=== PATIENT | female | born 1970 | race Caucasian/White ===

== ENCOUNTER 2016-05-20 20:48 | Emergency (ER) | payer OTHER ==
[~2016-05-20] VITALS: Ht 166.4 cm; Wt 63.5 kg
[~2016-05-20 20:48] MED LIST: BACTRIM DS 8001 TAB PO; CIPRO250 M1 PO; MACROBID100 MG PO; PROBIOTIC FORMU1 CAP PO
[2016-05-20 20:53] VITALS: BP 142/82
--- NOTE | 2016-05-20 21:19 | ED SYNCOPE COMPLAINT ---
History of Present Illness General Chief Complaint: General Adult Stated Complaint: " AT WORK FELT LIKE PASSING OUT, COLD CHILLS,+N" Source: patient Exam Limitations: no limitations Vital Signs & Intake/Output Vital Signs & Intake/Output Vital Signs Date Time Temp Pulse Resp B/P Pulse O2 O2 Flow FiO2 Ox Delivery Rate 05/20 2113 98 Room Air 05/20 2052 97.8 73 20 142/82 100 Room Air Allergies Coded Allergies: Penicillins (FULL BODY RASH A CHILD 05/20/16) nitrofurantoin (From MACROBID) (GI UPSET, PAPITATIONS 05/20/16) oxycodone (N/V AND DRY HEAVES 05/20/16) Reconcile Medications Ondansetron (Zofran Odt) 4 MG TAB.RAPDIS 1 TAB PO Q6 PRN NAUSEA Triage Note: TRIAGE: PT TO ER C/C FELT LIKE SHE WAS GOING TO PASS OUT. STATES "I FELT LIKE ALMOST DAZED AND FAINT FEELING. MY HANDS KEEP FEELING COLD. I GET COLD CHILLS." DENIES ANY PAIN OR OTHER S/S. Triage Nurses Notes Reviewed? yes Timing: multiple episodes today Context: AT WORK, DOING A DOUBLE Associated Symptoms: weakness : No Patient currently breastfeeds: No HPI: This is a 45-year-old female who presents to the ER for chief complaint of feeling near syncopal while at work today. 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 She had very little to eat including a hard-boiled leg, to off coffee then went on a. No chest pain but she felt very weak as if she was going to pass out and requested to leave. History of similar feeling the past with anemia. She sees that she is status post uterine ablation a few months ago secondary to hemorrhage. This month however she did have 2 periods that were 7 days long each. She does not take iron at home. She states she tries to drink plenty she blood count with eating vegetables. Denies any chest pain or shortness of breath. Denies any abdominal pain. Past History Travel History Traveled to [place] past 21 day No Medical History Any Pertinent Medical History? 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 No Review of Systems Review of Systems Constitutional: Reports: weakness. Denies: see HPI, fever. Respiratory: Denies: cough, short of breath, sputum production. Cardiovascular: Denies: chest pain. GI: Denies: abdominal pain. Genitourinary: Denies: discharge, dysuria. Physical Exam Physical Exam General Appearance: well developed/nourished, alert, awake, anxious, mild distress Head: atraumatic, normal appearance Eyes: Bilateral: normal appearance, PERRL, EOMI. Ears, Nose, Throat: normal pharynx, normal ENT inspection, hearing grossly normal Neck: normal inspection, supple, full range of motion Respiratory: normal breath sounds, chest non-tender, no respiratory distress Cardiovascular: regular rate/rhythm Gastrointestinal: soft, non-tender Back: normal inspection, normal range of motion Extremities: normal inspection, normal capillary refill, normal range of motion, no edema Psychiatric: awake, alert, oriented x 3 Cranial Nerves: normal hearing Coordination/Gait: normal gait Motor/Sensory: no motor/sensory deficits Core Measures ACS in differential dx? No CVA/TIA Diagnosis: No Severe Sepsis Present: No Septic Shock Present: No Progress Differential Diagnosis: ARRHYTHMIA, HYPOGLYCEMIA, ANEMIA, DEHYDRATION, ACUTE KIDNEY INJURY Plan of Care: Orders Procedure Date/time Status MISTAKE 05/20 2113 Active Telemetry/Meat Sales And Storage Manager 05/20 2113 Active FingerStick- Glucose 05/20 2113 Active URINALYSIS 05/20 2113 Complete COMPREHENSIVE METABOLIC PANEL 05/20 2113 Complete CBC WITHOUT DIFFERENTIAL 05/20 2113 Complete EKG 05/20 2113 Active Current Medications Sig/Sukumar Start time Last Medication Dose Stop Time Status Admin Ondansetron HCl 4 MG ONCE ONE 05/20 2229 UNVr (Zofran) 05/20 2230 Laboratory Tests 05/20/162133: Anion Gap 15, Estimated GFR > 60, BUN/Creatinine Ratio 12.9, Glucose 106 H, Calcium 10.0, Total Bilirubin 0.4, AST 18, ALT 30, Alkaline Phosphatase 51, Total Protein 7.5, Albumin 4.7, Globulin 2.8, Albumin/Globulin Ratio 1.7, CBC w Diff NO MAN DIFF REQ, RBC 4.00 L, MCV 90.1, MCH 30.2, RDW 12.5, MPV 7.8, Gran % 68.3, Lymphocytes % 22.0, Monocytes % 7.8, Eosinophils % 1.3, Basophils % 0.6, Absolute Granulocytes 5.6, Absolute Lymphocytes 1.8, Absolute Monocytes 0.6, Absolute Eosinophils 0.1, Absolute Basophils 0, PUBS MCHC 33.6 05/20/162119: Urine Color YEL, Urine Clarity CLEAR, Urine pH 6.5, Ur Specific [place] 1.010, Urine Protein NEG, Urine Ketones NEG, Urine Nitrite NEG, Urine Bilirubin NEG, Urine Urobilinogen 0.2, Ur Leukocyte Esterase NEG, Ur Microscopic SEDIMENT EXAMINED, Urine RBC FEW H, Urine WBC RARE, Ur Epithelial Cells FEW, Urine Hemoglobin TRACE-LYSED, Urine Glucose NEG EKG is normal. Labs are within normal limits. Patient is not anemic. Zofran given for mild nausea. She'll follow-up with her doctor in the office. I suspect that she may be coming down with some sort of viral syndrome. 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 (ROCIO PALMA,[place]) Initial ED EKG: NSR Departure Departure Time of Disposition: 2214 Disposition: HOME OR SELF CARE Condition: Stable Clinical Impression Primary Impression: Near syncope Secondary Impressions: Weakness Referrals: SHITAL MIRELES APRN (PCP/Family) Additional Instructions: MAKE SURE YOU EAT REGULAR MEALS AND GET REST AND DRINK PLENTY OF FLUIDS. FOLLOW UP WITH YOUR DOCTOR IN THE OFFICE. RETURN TO THE ER FOR ANY CHANGING OR WORSENING SYMPTOMS. Departure Forms: Customer Survey General Discharge Information Prescriptions: Current Visit Scripts Ondansetron (Zofran Odt) 1 TAB PO Q6 PRN NAUSEA #20 TAB
[2016-05-20 21:53] LABS: ABSOLUTE BASOPHIL COUNT 0 /CUMM (0.0-0.2); ABSOLUTE EOSINOPHIL COUNT 0.1 /CUMM (0.0-0.7); ABSOLUTE GRANULOCYTE CT 5.6 /CUMM (1.4-6.5); ABSOLUTE LYMPH COUNT 1.8 /CUMM (1.2-3.4); ABSOLUTE MONOCYTE COUNT 0.6 /CUMM (0.10-0.60); BASOPHIL % 0.6 % (0.0-2.0); EOSINOPHIL % 1.3 % (0-5); GRANULOCYTE % 68.3 % (42.2-75.2); MEAN CORPUSCULAR HGB 30.2 PG (27.0-31.0); MEAN CORPUSCULAR HGB CONC 33.6 G/DL (33.0-37.0); MEAN CORPUSCULAR VOLUME 90.1 FL (81.0-99.0); MEAN PLATELET VOLUME 7.8 FL (7.4-10.4); PLATELET COUNT 364 /CUMM (130-400); RBC DISTRIBUTION WIDTH 12.5 % (11.5-14.5); WHITE BLOOD CELL COUNT 8.2 /CUMM (4.8-10.8)
[2016-05-20] MEDS ORDERED: ZOFRAN ODT4 M1 PO (22:19)
== END 2016-05-20 22:21 ==
LOC: ERH 20:48
PROVIDERS: Emergency Medicine
DX: R55 Syncope and collapse (principal); R53.1 Weakness
CPT/HCPCS: 81001; 93005; 93010; J3101

== ENCOUNTER 2016-06-08 09:33 | Emergency (ER) | payer OTHER ==
[~2016-06-08] VITALS: Ht 167.6 cm; Wt 63.5 kg
[~2016-06-08 09:33] MED LIST changes: +ZOFRAN ODT4 M1 PO
--- NOTE | 2016-06-08 11:25 | ED GENERAL ADULT ---
History of Present Illness General Chief Complaint: General Adult Stated Complaint: HAND AND FEET NUMBNESS. Source: patient Exam Limitations: no limitations Vital Signs & Intake/Output Vital Signs & Intake/Output Vital Signs Date Time Temp Pulse Resp B/P Pulse O2 O2 Flow FiO2 Ox Delivery Rate 06/08 1255 61 18 110/53 100 Room Air 06/08 1146 96.3 58 16 112/56 99 Room Air 06/08 1122 Room Air 06/08 0941 97.4 87 18 134/84 100 Room Air Allergies Coded Allergies: Penicillins (FULL BODY RASH A CHILD 05/20/16) nitrofurantoin (From MACROBID) (GI UPSET, PAPITATIONS 05/20/16) oxycodone (N/V AND DRY HEAVES 05/20/16) Reconcile Medications Ondansetron (Zofran Odt) 4 MG TAB.RAPDIS 1 TAB PO Q6 PRN NAUSEA Triage Note: 46 Y/O FEMALE C/O BILATERAL FEET NUMBNESS AND L ARM NUMBNESS SINCE LAST NIGHT. STATES "I FEEL FAINT". CHECKS HER B/P AT HOME AND STATES IT WAS 80/45 LAST NIGHT - DRANK A LOT OF WATER AND DIDNT NOTICE ANY CHANGE IN SYMPTOMS. DENIES PAIN SPEAKING CLEARLY WITH NO DEFICITS NOTED Triage Nurses Notes Reviewed? yes Onset: Abrupt Duration: day(s):, constant, continues in ED Timing: recent history Injury Environment: home Severity: moderate, severe No Modifying Factors: none HPI: 46-year-old female comes into emergency room with multiple complaints. Patient reports that she has not been feeling well for a while. Patient reports that she felt earlier today some tingling in her feet bilaterally and some tingling in her left hand. The symptoms are resolved at this time. Patient has been feeling weak and dizzy and lightheaded and feeling faint. Denies any fever chills vomiting chest pain shortness of breath abdominal pain. Denies any urinary symptoms. Patient reports that she's also had a skin rash which has been getting attention from a insurance plan specialist and her primary care doctor. It is located in her hair in the back. Itching. Denies any recent trauma. Patient is currently on no medications and healthy with no medical problems. Past History Travel History Traveled to [place] past 21 day No Medical History Any Pertinent Medical History? 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 No Review of Systems Review of Systems Constitutional: Reports: see HPI. EENTM: Reports: no symptoms. Respiratory: Reports: no symptoms. Cardiovascular: Reports: no symptoms. GI: Reports: no symptoms. Genitourinary: Reports: no symptoms. Musculoskeletal: Reports: see HPI. Skin: Reports: no symptoms. Neurological/Psychological: Reports: see HPI. Hematologic/Endocrine: Reports: no symptoms. Immunologic/Allergic: Reports: no symptoms. All Other Systems: Reviewed and Negative Physical Exam Physical Exam General Appearance: well developed/nourished, no apparent distress, alert, awake Head: atraumatic, normal appearance Eyes: Bilateral: normal appearance, PERRL, EOMI. 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 No CVA/TIA Diagnosis: No Severe Sepsis Present: No Septic Shock Present: No Progress Differential Diagnoses I considered the following diagnoses in my evaluation of the patient: Electrolyte imbalance, CVA, vitamin deficiency, autoimmune disorder, cardiac arrhythmia, orthostatic hypotension, vertigo, cellulitis, seborrheic dermatitis, fungal infection, eczema, Plan of Care: Orders Procedure Date/time Status COMPREHENSIVE METABOLIC PANEL 06/08 1136 Complete CULTURE,URINE 06/08 1125 Active URINALYSIS 06/08 1125 Complete THYROID STIMULATING HORMONE 06/08 1125 Complete TROPONIN LEVEL 06/08 1125 Complete MAGNESIUM 06/08 1125 Complete CBC WITHOUT DIFFERENTIAL 06/08 1110 Complete EKG 06/08 0942 Active Laboratory Tests 06/08/16 1136: Anion Gap 10, Estimated GFR > 60, BUN/Creatinine Ratio 13.3, Glucose 99, Calcium 9.6, Magnesium 1.9, Total Bilirubin 0.4, AST 19, ALT 32, Alkaline Phosphatase 48 , Troponin I < 0.01, Total Protein 6.8, Albumin 4.3, Globulin 2.5, Albumin/ Globulin Ratio 1.7, TSH 3.750 06/08/16 1136: Sodium Cancelled, Potassium Cancelled, Chloride Cancelled, Carbon Dioxide Cancelled, Anion Gap Cancelled, BUN Cancelled, Creatinine Cancelled, BUN/ Creatinine Ratio Cancelled, Glucose Cancelled, Calcium Cancelled, Total Bilirubin Cancelled, AST Cancelled, ALT Cancelled, Alkaline Phosphatase Cancelled, Total Protein Cancelled, Albumin Cancelled, Globulin Cancelled, Albumin/Globulin Ratio Cancelled, CBC w Diff NO MAN DIFF REQ, RBC 4.00 L, MCV 90.2, MCH 30.6, RDW 12.2, MPV 7.6, Gran % 69.5, Lymphocytes % 21.4, Monocytes % 7.0, Eosinophils % 1.6, Basophils % 0.5, Absolute Granulocytes 3.1, Absolute Lymphocytes 1.0 L, Absolute Monocytes 0.3, Absolute Eosinophils 0.1, Absolute Basophils 0, PUBS MCHC 33.9, Urine Color YEL, Urine Clarity CLEAR, Urine pH 7.0, Ur Specific [place] <= 1.005, Urine Protein NEG, Urine Ketones NEG, Urine Nitrite NEG, Urine Bilirubin NEG, Urine Urobilinogen 0.2, Ur Leukocyte Esterase TRACE H, Ur Microscopic SEDIMENT EXAMINED, Urine RBC RARE, Urine WBC RARE, Urine Hemoglobin NEG, Urine Glucose NEG Microbiology 06/08 1136 URINE ROUT: Urine Culture - RECD Initial ED EKG: normal intervals, normal p-waves, normal QRS complex, normal sinus rhythm, rate (79) Departure Departure Disposition: HOME OR SELF CARE Condition: Stable Clinical Impression Primary Impression: Numbness and tingling Secondary Impressions: Lightheadedness Referrals: SHITAL MIRELES APRN (PCP/Family) Additional Instructions: Follow-up with your primary care doctor. Return if any other concerns worsening symptoms. Please go over all results of today's visit with your primary care doctor. Contact your primary care doctor to let them know you were here in the emergency room. There may be nonspecific findings which may not be related to your visit today here in the emergency room but may require further evaluation and chronic monitoring by your primary care doctor. If you had a laceration today the chance of foreign body always remains. You should follow-up with your primary care doctor for recheck in 3-5 days for a wound check. If you had an x-ray done there is a chance that a fracture could have been missed on initial read and you should follow-up with your primary care doctor for repeat x-rays if symptoms persist. If your blood pressure was elevated here in the emergency room please have rechecked by her primary care doctor within the next 48 hours by your primary care doctor. If you were prescribed a narcotic here in the emergency room or any type of controlled substances you're not allowed to drive while taking this medication or operate any type of heavy machinery. Narcotics can make you feel lightheaded dizziness nausea and can cause constipation. You may need to sisal picker a stool softener. Thank you for choosing [facility] emergency room. Please return to the emergency room immediately if you have any other concerns worsening of symptoms. Departure Forms: Customer Survey General Discharge Information Comments 06/08/2016 2:04:32 PM Patient clinically looks well. Nontoxic-appearing. No neurological deficits. No chest pain or shortness of breath. No symptoms or numbness or tingling at this time. At this time I feel the patient can follow-up with her primary care doctor. Do not feel the patient requires a CAT scan at this time. Patient understands and agrees a plan of care. Rash appears to be some dry skin in the scalp region likely consistent with a seborrheic dermatitis. Critical Care Note Critical Care Note Critical Care Time: non-applicable
[2016-06-08 11:45] LABS: ABSOLUTE BASOPHIL COUNT 0 /CUMM (0.0-0.2); ABSOLUTE EOSINOPHIL COUNT 0.1 /CUMM (0.0-0.7); ABSOLUTE GRANULOCYTE CT 3.1 /CUMM (1.4-6.5); ABSOLUTE MONOCYTE COUNT 0.3 /CUMM (0.10-0.60); BASOPHIL % 0.5 % (0.0-2.0); EOSINOPHIL % 1.6 % (0-5); GRANULOCYTE % 69.5 % (42.2-75.2); HEMATOCRIT 36.1 % (37-47); MEAN CORPUSCULAR HGB 30.6 PG (27.0-31.0); MEAN CORPUSCULAR HGB CONC 33.9 G/DL (33.0-37.0); MEAN CORPUSCULAR VOLUME 90.2 FL (81.0-99.0); MEAN PLATELET VOLUME 7.6 FL (7.4-10.4); PLATELET COUNT 365 /CUMM (130-400); RBC DISTRIBUTION WIDTH 12.2 % (11.5-14.5); WHITE BLOOD CELL COUNT 4.5 /CUMM (4.8-10.8)
[2016-06-08 12:55] VITALS: BP 110/53
== END 2016-06-08 13:26 ==
LOC: ERH 09:33
PROVIDERS: Physician Assistant Medical
DX: R20.0 Anesthesia of skin (principal); R20.2 Paresthesia of skin; R42 Dizziness and giddiness
CPT/HCPCS: 81001; 87086; 93005; 93010

== ENCOUNTER 2016-10-11 12:48 | Emergency (ER) | payer OTHER ==
[~2016-10-11] VITALS: Ht 167.6 cm; Wt 61.2 kg
--- NOTE | 2016-10-11 13:21 | ED GENERAL ADULT ---
History of Present Illness General Chief Complaint: General Adult Stated Complaint: NAUSEA,FEELING FAINT Source: patient, family Exam Limitations: no limitations Vital Signs & Intake/Output Vital Signs & Intake/Output Vital Signs Date Time Temp Pulse Resp B/P B/P Pulse O2 O2 Flow FiO2 Mean Ox Delivery Rate 10/11 1609 97.8 72 18 105/55 99 Room Air 10/11 1456 97.2 52 16 106/51 100 Room Air 10/11 1330 Room Air 10/11 1305 98.3 89 15 157/78 100 Room Air Allergies Coded Allergies: Penicillins (FULL BODY RASH A CHILD 05/20/16) nitrofurantoin (From MACROBID) (GI UPSET, PAPITATIONS 05/20/16) oxycodone (N/V AND DRY HEAVES 05/20/16) Reconcile Medications Lorazepam (Ativan) 1 MG TABLET 1 TAB PO BID PRN anxiety Triage Note: PT TO ED FOR NAUSEA AND LIGHTHEADEDNESS SINCE SUNDAY, REPORTING SHE WAS SEEN AT [facility] ON SUNDAY "FOR PALPITATIONS BUT THEY SENT ME HOME". Triage Nurses Notes Reviewed? yes Onset: Abrupt Duration: day(s): (2), constant, continues in ED Timing: single episode today Severity: mild, moderate Severity Numbers: 7 No Modifying Factors: none LMP (ages 10-50): unknown : No Patient currently breastfeeds: No HPI: 46-year-old female witha negative past medical history presents for evaluation of nausea, anxiety lightheadedness and feeling faint for the past 2 days. Her worst symptoms started on Sunday of this week and gradually beginning worse. She was seen at [facility] emergency Department 2 days ago and was discharged home on oral Xanax and oral Zofran. She reports that her symptoms improved after taking the Xanax but returned after she ran out. Increased stresses at home related to her daughter being . She denies any suicidal ideation or homicidal ideation. No illicit drug use. Patient denies any pain. She has been eating and drinking normally and has not vomited. Patient feels lightheaded and feels that she will pass out both during exertion and at rest. She denies any chest pain, shortness of breath, syncope, abdominal pain, diarrhea, back pain, changes in vision, headaches, dizziness or any other associated symptoms. (JACK SEARS,HYACINTH) Past History Travel History Traveled to [place] past 21 day No Medical History Any Pertinent Medical History? 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 No (JACK SEARS,HYACINTH) Review of Systems Review of Systems Constitutional: Reports: see HPI, weakness. EENTM: Reports: no symptoms. Respiratory: Reports: no symptoms. Cardiovascular: Reports: no symptoms. GI: Reports: see HPI, nausea. Genitourinary: Reports: no symptoms. Musculoskeletal: Reports: no symptoms. Skin: Reports: no symptoms. Neurological/Psychological: Reports: see HPI, anxiety. Hematologic/Endocrine: Reports: no symptoms. Immunologic/Allergic: Reports: no symptoms. All Other Systems: Reviewed and Negative (JACK SEARS,HYACINTH) Physical Exam Physical Exam General Appearance: well developed/nourished, alert, awake, anxious, mild distress Head: atraumatic, normal appearance Eyes: Bilateral: normal appearance, PERRL, EOMI. Ears, Nose, Throat: normal pharynx, normal ENT inspection, hearing grossly normal Neck: normal inspection, supple, full range of motion Respiratory: normal breath sounds, chest non-tender, no respiratory distress, lungs clear Cardiovascular: regular rate/rhythm, normal peripheral pulses Peripheral Pulses: 2+ dorsalis pedis (R), 2+ dorsalis pedis (L) Gastrointestinal: normal bowel sounds, soft, non-tender, no organomegaly Back: normal inspection, normal range of motion, no vertebral tenderness Extremities: normal inspection, normal capillary refill, normal range of motion Neurologic/Psych: no motor/sensory deficits, awake, alert, oriented x 3, normal gait Reflexes: 2+: knee (R), knee (L). Skin: intact, normal color, warm/dry Lymphatic: no anterior cervical anamaria Core Measures ACS in differential dx? No CVA/TIA Diagnosis: No Severe Sepsis Present: No Septic Shock Present: No (JACK SEARS,HYACINTH) Progress Differential Diagnoses I considered the following diagnoses in my evaluation of the patient: Vertigo, viral gastritis, gastritis, orthostatic hypotension, panic attack, generalized anxiety disorder, dehydration, electrolyte abnormality, arrhythmia Plan of Care: Orders Procedure Date/time Status Add-on Test (ER Only) 10/11 1516 Active MAGNESIUM 10/11 1516 Active MAGNESIUM 10/11 1425 Complete Add-on Test (ER Only) 10/11 1406 Active URINE 10/11 1406 Complete MISTAKE 10/11 1349 Active URINE DRUG SCREEN FOR ER ONLY 10/11 1349 Complete URINALYSIS 10/11 1349 Complete TROPONIN LEVEL 10/11 1349 Complete COMPREHENSIVE METABOLIC PANEL 10/11 1349 Complete CBC WITHOUT DIFFERENTIAL 10/11 134 Complete EKG 10/11 1306 Active Laboratory Tests 10/11/16 1425: Anion Gap 12, Estimated GFR > 60, BUN/Creatinine Ratio 16.7, Glucose 75, Calcium 10.0, Magnesium 1.9, Total Bilirubin 0.5, AST 15, ALT 29, Alkaline Phosphatase 49, Troponin I < 0.01, Total Protein 7.0, Albumin 4.5, Globulin 2.5, Albumin/ Globulin Ratio 1.8, CBC w Diff NO MAN DIFF REQ, RBC 4.23, MCV 91.2, MCH 31.3 H, RDW 13.9, MPV 7.9, Gran % 84.9 H, Lymphocytes % 9.0 L, Monocytes % 5.3, Eosinophils % 0.5, Basophils % 0.3, Absolute Granulocytes 8.7 H, Absolute Lymphocytes 0.9 L, Absolute Monocytes 0.5, Absolute Eosinophils 0.1, Absolute Basophils 0, PUBS MCHC 34.3 10/11/16 1350: Urine Test NEGATIVE 10/11/16 1350: Urine Opiates Screen < 100.00, Methadone Screen < 40, Barbiturate Screen < 60, Ur Phencyclidine Scrn < 6.00, Amphetamines Screen < 100, U Benzodiazepines Scrn < 85, Urine Cocaine Screen < 50, Urine Cannabis Screen < 5.00, Urine Color STRAW , Urine Clarity CLEAR, Urine pH 6.5, Ur Specific [place] <= 1.005, Urine Protein NEG, Urine Ketones NEG, Urine Nitrite NEG, Urine Bilirubin NEG, Urine Urobilinogen 0.2, Ur Leukocyte Esterase NEG, Ur Microscopic EXAM NOT REQUIRED, Urine Hemoglobin NEG, Urine Glucose NEG Patient seen and evaluated. Basic blood work will be repeated. pt given 0.5mg of PO ativan. 3:16 PM: Patient is feeling much better after receiving oral Ativan. Patient is no longer in any distress and is sitting comfortably in the room. She is currently asymptomatic and denies any nausea, dizziness, or feeling faint. All blood work is within normal limits. Magnesium was added on due to prolonged QT interval. Patient will be discharged home with oral Ativan to use as needed. She will follow-up with her primary care doctor this week. Patient is nontoxic- appearing at discharge. Discussed all results with patient and she is in agreement with the plan. Magnesium is 1.9. Patient will be discharged home with oral Ativan to use as needed for anxiety. She'll follow-up with her primary care doctor this week to reveal results. Return to emergency department as needed. (HYACINTH SANTIAGO PA-C) Initial ED EKG: sinus rhythm, non-specific t wave abn, prolonged qt >510 (pt on zofran past 2 days) (HYACINTH SANTIAGO PA-C) Departure Departure Disposition: HOME OR SELF CARE Condition: Stable Clinical Impression Primary Impression: Anxiety about health Referrals: SHITAL MIRELES APRN (PCP/Family) Additional Instructions: Use Ativan as needed for anxiety. This may cause drowsiness do not drive or drink alcohol while taking. Make a follow-up: With her primary care doctor this week to review all results of today's visit. Return to the emergency department with any concerns. Departure Forms: Customer Survey General Discharge Information Prescriptions: Current Visit Scripts Lorazepam (Ativan) 1 TAB PO BID PRN anxiety #6 TAB (HYACINTH SANTIAGO PA-C) PA/TELLERS SUPERVISOR Co-Sign Statement Statement: ED Attending supervision documentation- [] I saw and evaluated the patient. I have also reviewed all the pertinent lab results and diagnostic results. I agree with the findings and the plan of care as documented in the PA's/TELLERS SUPERVISOR's documentation. [X] I have reviewed the ED Record and agree with the PA's/TELLERS SUPERVISOR's documentation. [] Additions or exceptions (if any) to the PAs/TELLERS SUPERVISOR's note and plan are summarized below: [] (CHANDANA VELEZ DO) Critical Care Note Critical Care Note Critical Care Time: non-applicable (HYACINTH SANTIAGO PA-C)
[2016-10-11 14:42] LABS: ABSOLUTE BASOPHIL COUNT 0 /CUMM (0.0-0.2); ABSOLUTE EOSINOPHIL COUNT 0.1 /CUMM (0.0-0.7); ABSOLUTE GRANULOCYTE CT 8.7 /CUMM (1.4-6.5); ABSOLUTE LYMPH COUNT 0.9 /CUMM (1.2-3.4); ABSOLUTE MONOCYTE COUNT 0.5 /CUMM (0.10-0.60); BASOPHIL % 0.3 % (0.0-2.0); EOSINOPHIL % 0.5 % (0-5); HEMATOCRIT 38.5 % (37-47); MEAN CORPUSCULAR HGB 31.3 PG (27.0-31.0); MEAN CORPUSCULAR HGB CONC 34.3 G/DL (33.0-37.0); MEAN CORPUSCULAR VOLUME 91.2 FL (81.0-99.0); MEAN PLATELET VOLUME 7.9 FL (7.4-10.4); PLATELET COUNT 304 /CUMM (130-400); RBC DISTRIBUTION WIDTH 13.9 % (11.5-14.5); RED BLOOD CELL CT 4.23 /CUMM (4.20-5.40); WHITE BLOOD CELL COUNT 10.3 /CUMM (4.8-10.8)
[2016-10-11 15:00] LABS: GRANULOCYTE % 84.9 % (42.2-75.2)
[2016-10-11] MEDS ORDERED: ATIVAN1 M1 PO (15:56)
[2016-10-11 16:09] VITALS: BP 105/55
== END 2016-10-11 16:25 ==
LOC: ERH 12:48
PROVIDERS: Physician Assistant Medical
DX: F41.9 Anxiety disorder, unspecified (principal); R42 Dizziness and giddiness
CPT/HCPCS: 80307; 81003; 81025; 93005; 93010

== ENCOUNTER 2016-11-19 01:34 | Emergency (ER) | payer OTHER ==
[~2016-11-19] VITALS: Ht 165.1 cm; Wt 61.2 kg
[~2016-11-19 01:34] MED LIST changes: +ATIVAN1 M1 PO; +AVELOX400 M1 PO; +BETAMETHASONE D30 ML TOP; +MUCINEX600 M1 PO; +NIZORAL120 ML TOP; +PREDNISONE20 M1 PO; +TRIAMCINOLONE A60 M1 TOP; +VIBRAMYCIN100 MG PO
--- NOTE | 2016-11-19 02:33 | ED GENERAL ADULT ---
History of Present Illness General Chief Complaint: General Adult Stated Complaint: "PER PT HOT, DRY MOUTH, SHAKING, NECK STRAIN" Source: patient Exam Limitations: no limitations Vital Signs & Intake/Output Vital Signs & Intake/Output Vital Signs Date Time Temp Pulse Resp B/P B/P Pulse O2 O2 Flow FiO2 Mean Ox Delivery Rate 11/19 0407 98.3 88 18 124/71 96 Room Air 11/19 0149 97.7 77 16 126/74 99 Room Air Room Air Allergies Coded Allergies: Penicillins (FULL BODY RASH A CHILD 05/20/16) nitrofurantoin (From MACROBID) (GI UPSET, PALPITATIONS 11/06/16) oxycodone (N/V AND DRY HEAVES 05/20/16) Reconcile Medications Betamethasone/Propylene Glyc (Betamethasone Dp Aug 0.05% Lot) 0.05 % LOTION 1 CHRISTA TOP DAILY PSORIASIS (Reported) Guaifenesin (Mucinex) 600 MG TAB.ER.12H 1 TAB PO BID PRN COUGH Ketoconazole (Nizoral) 2 % SHAMPOO 1 CHRISTA TOP 2XW SCALP (Reported) Lorazepam (Ativan) 1 MG TABLET 1 TAB PO BID PRN anxiety Moxifloxacin HCl (Avelox) 400 MG TABLET 1 TAB PO DAILY BRONCHITIS Prednisone 20 MG TABLET 2 TAB PO DAILY BRONCHITIS Triamcinolone Acetonide 0.1 % LOTION 1 CHRISTA TOP BID PRN SCALP (Reported) Triage Note: 46YO FEMALE TO [facility] W/CO "SOMETHING IS REALLY WRONG W/ME" STATES SHE WAS SEEN HERE FEW WEEKS AGO , DXED ANXIETY AND GIVEN VISTARIL TO HELP HER SLEEP" CO DRY MOUTH, UNABLE TO SLEEP TONITE AFTER TAKING VIST. Triage Nurses Notes Reviewed? yes Onset: Abrupt Duration: hour(s): Timing: recent history HPI: 11/19/16 3:49 AM 46-year-old female presents to the emergency department for an episode of facial flushing. The patient states she took some be vitamins at approximately 7 PM, went to bed and had an episode of facial flushing. She's recently been put on Vistaril for anxiety. She denies any chest pain or shortness of breath or fever. No headache. The onset of the symptoms were abrupt, the duration was just today, the severity is significant as her symptoms required her to come to the emergency department for care. Past History Travel History Traveled to [place] past 21 day No Medical History Any Pertinent Medical History? 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 No Review of Systems Review of Systems Constitutional: Reports: no symptoms, see HPI, chills, diaphoresis, fever, malaise, weakness, unexplained weight loss. EENTM: Reports: no symptoms. Respiratory: Denies: short of breath. Cardiovascular: Denies: chest pain. GI: Reports: no symptoms. Genitourinary: Reports: no symptoms. Musculoskeletal: Reports: no symptoms. Skin: Reports: no symptoms. Neurological/Psychological: Reports: no symptoms. Hematologic/Endocrine: Reports: no symptoms. Immunologic/Allergic: Reports: no symptoms. All Other Systems: Reviewed and Negative Physical Exam Physical Exam General Appearance: well developed/nourished, alert, awake, anxious, moderate distress Head: atraumatic, normal appearance Eyes: Bilateral: normal appearance, PERRL, EOMI. Ears, Nose, Throat: normal pharynx, normal ENT inspection Neck: normal inspection, supple Respiratory: normal breath sounds Cardiovascular: regular rate/rhythm Peripheral Pulses: 4+ radial (R), 4+ radial (L) Gastrointestinal: non-tender Back: normal range of motion Extremities: normal inspection, normal range of motion, no edema Neurologic/Psych: no motor/sensory deficits, awake, alert, oriented x 3 Skin: intact, normal color, warm/dry Core Measures ACS in differential dx? No CVA/TIA Diagnosis: No Severe Sepsis Present: No Septic Shock Present: No Progress Differential Diagnoses I considered the following diagnoses in my evaluation of the patient: [Acute coronary syndrome, pulmonary embolism, anxiety reaction, adverse reaction to vitamins, hormonal fluctuations related to menopause] Plan of Care: Orders Procedure Date/time Status EKG 11/19 0319 Active Initial ED EKG: NSR, nonspecific ST T wave chg Prior EKG: unchanged Departure Departure Disposition: HOME OR SELF CARE Condition: Stable Clinical Impression Primary Impression: Flushing Referrals: SHITAL MIRELES APRN (PCP/Family) Departure Forms: Customer Survey General Discharge Information Comments The patient symptoms resolved in the ED. Her physical exam was normal. Vital signs were normal. EKG was normal. She says she has a history of anxiety in the past. Xanax as helped her. She was given 0.25 of Xanax. She was told to follow-up with her doctor this week or to return to the emergency department if worse. I considered pulmonary embolism No chest pain, no shortness of breath, no tachycardia, PERC score and Well's score low risk. Critical Care Note Critical Care Note Critical Care Time: non-applicable
[2016-11-19 04:07] VITALS: BP 124/71
== END 2016-11-19 04:06 ==
LOC: ERH 01:34
DX: R23.2 Flushing (principal); F41.9 Anxiety disorder, unspecified
CPT/HCPCS: 93005; 93010